=== PATIENT | female | born 1970 | race Caucasian/White ===

== ENCOUNTER 2017-07-08 15:08 | Emergency (ER) | payer MEDICARE, MEDICAID ==
[~2017-07-08] VITALS: Ht 154.9 cm; Wt 60.8 kg
--- NOTE | 2017-07-08 15:56 | Emergency Room Report ---
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 N Clinical Suspician of Infection? N Mental Status: 1 - Regular (Normal Baseline) Sepsis Risk:Low Sepsis Risk Have you (or family members/close friends) recently traveled outside the [place]? N If Yes, where/when: Have you had exposure to infectious disease within the past month? TB? Other? Specify: Source patient, RN notes reviewed Exam Limitations no limitations Comment Comes to the ED complaining of either Anxiety or TIA symptoms. and she reports she has a history of drug abuse herself but never any IV drug use. Her daughter just had a baby while takingdrugs and the pt has not been granted visitation to see her grandchildren. She has had emotional problems for quite some time and now sees Dr. Cole who has her on Cymbalta , abilify and Valium She is tearful and basically is an emotional mess with flight of ideas, depersonalizing statements Cardiac Chest Pain Chest pain indicative of cardiac No Timing/Duration just prior to arrival ALLERGIES Coded Allergies: codeine (Intermediate, I-HIVES 07/08/17) morphine (Intermediate, I-HIVES 07/08/17) Home Medications Active Scripts Ondansetron (Zofran 4MG Odt) 4 MG PO Q6HP PRN NAUSEA AND VOMITING #10 ODT Prov: 04/08/16 Loratadine (Claritin) 10 MG PO DAILY #15 SGL Prov: 04/08/16 Amoxicillin/Potassium Clav (Augmentin 875-125 Tablet) 1 EACH PO BID #20 TAB Prov: 09/23/16 Reported Medications Fluoxetine Hcl (Prozac) 60 MG PO DAILY Aripiprazole (Abilify) 50 MG PO DAILY Bupropion Hcl (Wellbutrin 100MG) 150 MG PO DAILY Metformin HCL (Metformin) 500 MG PO DAILY History Medical History General CAD? No Angina: No DC: No Hypertension? No Hyperlipidemia? No CHF? No DVT? No PE? No COPD? No Asthma? No Anemia? No GERD? No Gastric ulcers? No GI Bleed? No Hernia? No Thyroid Problems? No Hypothyroidism? No CVA? No Seizures? No Diabetes? Yes Insulin Dependent: No Insulin Pump: No Home FSBS? Yes Renal Insuffiency? No End Stage Renal Disease? No UTI? No Stones? No BPH? No GB Disease: Yes Nephritic Syndrome? No Asplenia? No Hepatitis? No Sickle Cell Disease? No Arthritis? No Migraines? No Cataracts? No Glaucoma? No MRSA? No HIV? No TB? No Anxiety? Yes Depression? Yes Cancer? 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 Hx LMP N/A Family History Family Hx Diabetes Yes CAD Yes Hypertension Yes Hyperlipidemia Yes Cancer Yes TB Yes Social History Smoking Hx Smoker: Former Smoker Tobacco: Yes Type Cigarettes Packs/day < 1 Pack Alcohol Alcohol: No Review of Systems All Other Systems Reviewed and Negative Constitutional see HPI Eyes see HPI Respiratory denies no symptoms reported Psychiatric/Neurological see HPI Physical Exam Vital Signs Vital Signs Date Time Temp Pulse Resp B/P Pulse O2 O2 Flow FiO2 Ox Delivery Rate 07/08 1510 98.3 107 18 83/54 99 General Appearance moderate distress (with flight of ideas and tearf) Respiratory Status No: respiratory distress. Lung Sounds bilateral: lungs clear. 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 No Results/Orders Laboratory Tests 07/08/17 1650: Sodium 136, Potassium 3.3 L, Chloride 104, Carbon Dioxide 27, BUN 11, Creatinine 0.7, Estimated Creat Clear 98, Estimated GFR (MDRD) 91, Glucose 86, Calcium 8.8, Total Bilirubin 0.6, AST 85 H, ALT 145 H, Alkaline Phosphatase 127 H, Total Protein 7.7, Albumin 4.0, Globulin 3.7 H, Albumin/Globulin Ratio 1.1, WBC 8.7, RBC 4.96, Hgb 12.0 L, Hct 37.6, MCV 75.7 L, RDW 13.4, Plt Count 225, MPV 7.3 L, Gran % 62.3, Gran # 5.4, Lymphocytes % 31.3, Monocytes % 4.8, Eosinophils % 1.4, Basophils % 0.3, Lymphocytes # 2.7, Monocytes # 0.4, Eosinophils # 0.1, Basophils # 0.0, PUBS MCHC 31.8, MCH 24.1 L, Alcohols 0 Current Medication Orders Sig/Yomaira Start time Last Medication Dose Route Stop Time Status Admin Sodium Chloride 1,000 ML .STK-MED ONE 07/08 1615 DC IV Hydroxyzine HCl 0 .STK-MED ONE 07/08 1614 DC IM Hydroxyzine HCl 50 MG ONCE ONE 07/08 1600 DC 07/08 IM 07/08 1601 1655 Sodium Chloride 10 ML PRN PRN 07/08 1600 AC IV 07/09 1557 Sodium Chloride 1,000 ML .Q1H1M 07/08 1600 DC 07/08 IV 07/08 1700 1655 Sodium Chloride 10 ML PRN PRN 07/08 1600 AC IV 07/09 1557 Sodium Chloride 1,000 ML .Q1H1M 07/08 1600 DC IV 07/08 1700 Sodium Chloride 10 ML PRN PRN 07/08 1600 AC IV 07/09 1557 Sodium Chloride 10 ML PRN PRN 07/08 1515 AC IV 07/09 1513 Orders Procedure Date/time Status DIET-NOTHING BY MOUTH 07/[address] HEAD REQ 07/08 1558 Complete IV SALINE LOCK 07/08 1558 Active URINALYSIS/COMPLETE 07/08 1558 Active LACTIC ACID 07/08 1558 Active DRUG ABUSE SCREEN (10) 07/08 1558 Active CBC WITH AUTO DIFF 07/08 155 Complete CHEM 12 PROFILE 07/08 1558 Complete ALCOHOL 07/08 1558 Complete XRAY/CT/US XRAY/CT/US XRAY chest XR interpretation by discussed w/radiologist Xray Results normal/NAD CT head CT interpretation by discussed w/radiologist Time results known: 1814 CT Results normal/NAD Departure Departure Time of Disposition 1815 Disposition DC Home or Self Care(routine) Clinical Impression Primary Impression: Generalized anxiety disorder Secondary Impressions: Hepatitis C Qualifiers: Viral hepatitis chronicity: chronic Hepatic coma status: without hepatic coma Qualified Code: B18.2 - Chronic viral hepatitis C Substance abuse Tobacco use Condition STABLE Referrals Ji Cole MD (Family): 2 Days-Call Office Patient Instructions Anxiety Disorders, DI for Anxiety -- Adult, DI for Hepatitis C, Generalized Anxiety Disorder, Hepatitis C, Hepatitis C Virus Additional Instructions Followup with Dr. Cole to see if he can recommend a therapist to help you with your anxiety and also a specialist to discuss treatment for Hepatitis C Discharge Counseling Counseled pt/family regarding diagnosis, test results, home care, follow up needs ED Critical Care Critical Care No If Critical Care minutes are documented, the time involved in the performance of seperately reportable procedures was not counted toward critical care time documented. I directly delivered medical care to this critically ill and/or injured patient. Timely evaluation and treatment was necessary to address the significant organ system(s) dysfunction present in this patient. at 1820
[2017-07-08 17:01] LABS: LYMPH # 2.7 K/mm3 (0.7-4.5); LYMPH % 31.3 % (10-50.0)
--- NOTE | 2017-07-08 17:06 | RADIOLOGY REPORT PS360 ---
CT HEAD WITHOUT CONTRAST CT BONE WINDOWS included ORDERING PHYSICIAN : Breanne Bardales MD PATIENT AGE: 46 years GENDER: Female PROCEDURE: Routine axial images headwithout contrast. Brain & bone windows HISTORY: DIZZINESS. Nausea and tingling fingers left-sided weakness near syncope. Diarrhea and nausea. COMPARISON: None available FINDINGS: No acute intracranial findings. No hemorrhage. No mass effect or mass lesion. No subdural nor extra-axial collection. Ventricles & basal cisterns appear satisfactory. Cooley & white matter patterns satisfactory. The posterior fossa appear satisfactory and unremarkable. Skull is intact. Borderline mucosal thickening ethmoid air cells otherwise paranasal sinuses clear & unremarkable. It Mastoid air cells, middle ear & IACs are unremarkable. IMPRESSION: No acute intracranial findings. Normal CT brain
--- NOTE | 2017-07-08 17:08 | RADIOLOGY REPORT PS360 ---
CHEST(2 VIEWS-NOT PORTABLE) Ordering physician: Breanne Bardales MD Age: 46 years Female INDICATION: chest symptomsSOADyspnea PROCEDURE: CHEST(2 VIEWS-NOT PORTABLE) FINDINGS: Prior chest films from and used for comparison. No acute findings today. Lungs mildly hyperexpanded & clear with nothing definitely acute. . Old granulomatous disease No pneumothorax. No pleural effusion. Heart normal size. Normal pulmonary vascularity. Hilar and mediastinal structures appear satisfactory. Chest wall unremarkable. Minor superior endplate compression at 2 mid thoracic vertebral is similar to perhaps slightly more evident in 2011 but old finding. . IMPRESSION ----- Stable chest Lungs clear with nothing definitely acute.
[2017-07-08 18:36] VITALS: BP 112/72
== END 2017-07-08 18:36 | disposition home or self-care (01) ==
LOC: ER 15:08
PROVIDERS: General Practice
DX: F41.1 Generalized anxiety disorder (principal); B18.2 Chronic viral hepatitis C; F19.10 Other psychoactive substance abuse, uncomplicated; Z87.891 Personal history of nicotine dependence; F32.9 Major depressive disorder, single episode, unspecified; E11.9 Type 2 diabetes mellitus without complications; Z79.84 Long term (current) use of oral hypoglycemic drugs; Z79.899 Other long term (current) drug therapy